=== PATIENT | male | born 1930 | race Caucasian/White ===

== ENCOUNTER 2019-08-05 20:24 | Emergency (ER) | payer MEDICARE ==
[~2019-08-05] VITALS: Ht 172.7 cm; Wt 93.0 kg
[2019-08-05] MEDS ORDERED: morphine INJ 10 MG/ML 1ML (SYR OR VIAL) IVP STA (20:50)
[2019-08-05] MEDS ORDERED: NS IV 1000 ML 1,000 ML IV STA (21:19)
--- NOTE | 2019-08-05 21:21 | Diagnostic Imaging Report ---
INDICATION: Walking up steps, tripped, right shoulder pain. FINDINGS: Two views of the right shoulder demonstrate a fracture through the inferior aspect of the glenoid with dislocation of the humerus. A humeral head fracture cannot be excluded on these films. IMPRESSION: There is a fracture of the glenoid with dislocation of the humerus. Dictated by: Dictated on workstation # [id number]
[2019-08-05] MEDS ORDERED: ETOMIDATE IV SOLN 20 MG/10 ML VIAL IV ONE (21:30)
--- NOTE | 2019-08-05 21:45 | ED Upper Extremity ---
General Chief Complaint: Upper Extremity Stated Complaint: ARM PAIN, FELL Nursing Triage Note: pt walking up steps and tripped placed right hand down to catch self and comes in per ems with co mid-upper shaft humerous pain. no other co, no loc, pt did receive 100 mcg of iv fentanyl per ems Nursing Sepsis Screen: No Definite Risk Source: patient Exam Limitations: no limitations History of Present Illness Date Seen by Provider: Aug 05, 2019 Time Seen by Provider: 20:48 Initial Comments Fall onto extended R arm w R shoulder injury. can't move his right arm. Arrives via EMS, given 100mcg Fentanyl and still having moderate pain. No other injuries. Onset: just prior to arrival Severity: moderate Method of Injury: fell Modifying Factors: Worse With Movement Allergies and Home Medications Allergies Coded Allergies: No Known Drug Allergies (Unverified , 08/05/19) Home Medications Oxycodone HCl/Acetaminophen 1 Each Tablet, 1 TAB PO Q4H PRN for PAIN-MODERATE Prescribed by: ADELSO BORJA on 08/05/19 2202 Patient Home Medication List Home Medication List Reviewed: Yes Review of Systems Constitutional: no symptoms reported; No malaise, No weakness Respiratory: No cough, No short of breath Cardiovascular: No chest pain, No palpitations, No syncope Musculoskeletal: see HPI; No back pain; joint pain (R shoulder), muscle pain; No muscle weakness, No neck pain Skin: No change in color, No rash Psychiatric/Neurological: Denies Numbness, Denies Paresthesia, Denies Pre- Existing Deficit, Denies Tremors, Denies Weakness Past Xfpnlpr-Apubbf-Emdygf Hx Past Med/Social Hx: Reviewed Nursing Past Med/Soc Hx Patient Social History Alcohol Use: Rarely Uses Alcohol Beverage of Choice: Beer Recreational Drug Use: No Smoking Status: Never a Smoker 2nd Hand Smoke Exposure: No Recent Foreign Travel: No Contact w/Someone Who Travel: No Recent Infectious Disease Expo: No Recent Hopitalizations: No Physical Abuse: No Sexual Abuse: No Mistreated: No Fear: No Seasonal Allergies Seasonal Allergies: No Past Medical History Orthopedic, Prostatectomy Respiratory: No Cardiac: Yes Hypertension Neurological: No Genitourinary: Yes Prostate Problems Gastrointestinal: No Musculoskeletal: Yes Chronic Back Pain Endocrine: No HEENT: No Cancer: Yes Prostate Psychosocial: No Integumentary: No Blood Disorders: No Physical Exam Vital Signs Vital Signs - First Documented 08/05/19 08/05/19 20:36 21:27 Temp 36.0 Pulse 72 Resp 18 B/P (MAP) 164/98 (120) Pulse Ox 98 O2 Delivery Room Air O2 Flow Rate 4.00 Capillary Refill : Less Than 3 Seconds Height, Weight, BMI Height: '" Weight: lbs. oz. kg; 31.00 BMI Method: General Appearance: WD/WN, no apparent distress HEENT: normal ENT inspection Neck: non-tender, full range of motion, supple Cardiovascular: regular rate, rhythm, no edema, no gallop Respiratory: chest non-tender, lungs clear, normal breath sounds Gastrointestinal: non tender, soft Back: normal inspection, no CVA tenderness, no vertebral tenderness Shoulder: No normal ROM; asymmetry (compared to left), bone tenderness (proximal Right humerus), deformity (R humerus), limited ROM, pain, soft tissue tenderness Elbow/Forearm: normal inspection, non-tender, no evidence of injury, normal ROM Wrist: Yes normal inspection, Yes non-tender, Yes no evidence of injury, Yes normal ROM Hand: normal inspection, non-tender, no evidence of injury, normal ROM, Right Neurologic/Tendon: normal sensation, normal motor functions Neurologic/Psychiatric: no motor/sensory deficits, alert, normal mood/affect, oriented x 3 Skin: normal color, warm/dry Procedures/Interventions Procedure: right arm dislocation Patient Education: Explained Benefits, Explained Risks, Pt. Ack. Understanding Agreement on procedure with pt: Yes Breath Sounds per Auscultation: Clear Heart Sounds per Auscultation: Regular Airway Exam: Mouth opens >2 fingers, Neck Full Range of Motion, Visulation of Uvula Splinting and Joint Reduction : Pre-Proc Neuro Vasc Exam: normal Post-Proc Neuro Vasc Exam: normal Joint Reduction Site: shoulder (R) Reduction Attempts: 1 Pre-Procedure NV Exam: Yes post joint reduction film: joint reduced Immobilizers: Large Shoulder Progress/Results/Core Measures Results/Orders My Orders Medications Given in ED Vital Signs/I&O Blood Pressure Mean: 120 Departure Impression Primary Impression: Anterior shoulder dislocation Qualified Codes: S43.014A - Anterior dislocation of right humerus, initial encounter Additional Impression: Glenoid fracture of shoulder Qualified Codes: S42.141A - Displaced fracture of glenoid cavity of scapula, right shoulder, initial encounter for closed fracture; S42.151A - Displaced fracture of neck of scapula, right shoulder, initial encounter for closed f racture Disposition: 01 HOME, SELF-CARE Condition: Improved Departure-Patient Inst. Decision time for Depature: 22:03 Referrals: SHAHRIAR PATIÑO MD (PCP) Primary Care Physician AALIYAH LAURENT MD anterior dislocation w fx of inferior glenoid Patient Instructions: Shoulder Dislocation (DC), Shoulder Fracture (DC) Add. Discharge Instructions: Call Dr Laurent (Orthopedic Surgeon ) to arrange for follow up care next week. All discharge instructions reviewed with patient and/or family. Voiced un derstanding. Scripts Oxycodone HCl/Acetaminophen (Percocet 5-325 mg Tablet) 1 Each Tablet 1 TAB PO Q4H PRN for PAIN-MODERATE MDD 6 for 7 Days, #20 TAB Prov: ADELSO BORJA DO 08/05/19 ADELSO BORJA DO Aug 05, 2019 21:45
--- NOTE | 2019-08-05 21:57 | Diagnostic Imaging Report ---
INDICATION: Post reduction right shoulder. FINDINGS: Reduction of the right shoulder demonstrates a bulging fracture off of the humeral head. The glenoid on this view appears normal. No dislocation is present. IMPRESSION: The right shoulder dislocation has been reduced. There is avulsion off of the humeral head. Dictated by: Dictated on workstation # [id number]
--- NOTE | 2019-08-05 21:57 | NUR ---
2129-etomidate given 2134-right sholder reduction obtained 2141-right shoulder immobilizer placed 2144-pt taken to xray for post reduction view-pt awake and talking with staff, a/o x4 states no pain with shoulder now
[2019-08-05] MEDS ORDERED: OXYC-199 PO (22:02)
[2019-08-05 22:43] VITALS: BP 144/73
--- OUTSIDE RECORDS SUMMARY | 2019-08-09 19:38 | XMS REPORT ---
Author Author David Casarez Organization [facility] Address [address] [address] [place] [address] Care Team Providers Care Repair Tech Name Role Phone Leodan Casarez Unavailable PROBLEMS Type Condition ICD9-CM Code VRP74-LQ Code Onset Dates Condition S tatus SNOMED Code Problem SK (seborrheic keratosis) L82.1 Acti ve 730823229 Problem Psoriasis L40.9 Active 5966056 Problem Personal history of other malignant neoplasm of skin V10.83 Active 179447370 Problem Benign neoplasm of skin of trunk, except scrotum 216.5 Active 347739916 Problem Personal history of other malignant neoplasm of skin Z85.828 Active 714128136 Problem Actinic keratosis L57.0 Active 20 1891999 ALLERGIES No Known Allergies ENCOUNTERS Encounter Location Date Diagnosis [facility] [address] [place] [address] [id number] Apr, 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 [facility] [address] [place] [id number] Mar, [facility] [address] [place] [address] [id number] Mar, Benign neoplasm of skin of t runk, except scrotum D23.5 ; Personal history of other malignant neoplasm of skin Z85.828 ; Encounter for screening for malignant neoplasm of skin Z12.83 ; Actinic keratosis L57.0 ; Neoplasm of uncertain behavior of skin D48.5 ; Seborrheic keratoses L82.1 and Lentigo L81.4 [facility] [address] [place] [address] [id number] September, Seborrheic keratoses L82.1 ; Personal history of other malignant neoplasm of skin Z85.828 ; Encounter for screening for malignant neoplasm of skin Z12.83 ; Actinic keratosis L57.0 ; Benign neoplasm of skin of trunk, except scrotum D23.5 ; Lentigo L81.4 and Milia L72.[address] [id number] Mar, SK (seborrheic keratosis) L8 2.1 and Actinic keratosis L57.[address] [id number] Mar, Benign neoplasm of skin of t runk, except scrotum D23.5 ; Personal history of other malignant neoplasm of skin Z85.828 ; Encounter for screening for malignant neoplasm of skin Z12.83 ; Actinic keratosis L57.0 ; Neoplasm of uncertain behavior of skin D48.5 ; Seborrheic keratoses L82.1 and Lentigo L81.[address] [id number] May, Actinic keratosis L57.0 ; Ps oriasis L40.9 ; Seborrhea L21.9 ; Personal history of other malignant neoplasm of skin Z85.828 ; Other seborrheic keratosis L82.1 and Other skin changes due to chronic exposure to nonionizing radiation L57.[address] [id number] Aug, Actinic keratosis L57.0 ; Pe rsonal history of other malignant neoplasm of skin Z85.828 ; Hemangioma of skin and subcutaneous tissue D18.01 ; Other benign neoplasm of skin of trunk D23.5 ; Other seborrheic keratosis L82.1 ; Other melanin hyperpigmentation L81.4 and Other psoriasis L40.[address] [id number] Mar, Actinic keratosis L57.0 ; Pe rsonal history of other malignant neoplasm of skin Z85.828 ; History of other malignant neoplasm of skin Z85.828 ; Hemangioma of skin and subcutaneous tissue D18.01 ; Other benign neoplasm of skin of trunk D23.5 ; Keratosis, seborrheic L82.1 ; Other seborrheic keratosis L82.1 ; Dyschromia L81.9 and Other melanin hyperpigmentation L81.[address] [id number] September, Actinic keratosis 702.[address] [id number] September, Personal history of other ma lignant neoplasm of skin V10.83 ; Actinic keratosis 702.0 ; Neoplasm of uncertain behavior of skin 238.2 ; 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 and Other seborrheic keratosis 702.[address] [id number] Jul, Personal history of other ma lignant neoplasm of skin V10.83 ; Actinic keratosis 702.0 ; 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 and Other seborrheic keratosis 702.[address] [id number] Mar, Personal history of other ma lignant neoplasm of skin V10.83 ; Actinic keratosis 702.0 ; Neoplasm of uncertain behavior of skin 238.2 ; 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 ; Other seborrheic keratosis 702.19 and Nevus, non- neoplastic 448.[address] [id number] September, 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 and Encounter for removal of sutures V58.[address] [id number] September, Carcinoma in situ of scalp a nd skin of neck 232.[address] [id number] Aug, Benign neoplasm of skin of t runk, except scrotum 216.5 ; Actinic keratosis 702.0 ; Neoplasm of uncertain behavior of skin 238.2 ; 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 PLAN OF CARE Activity Details Follow Up 10 d Reason: [place] [facility] [place] VITAL SIGNS Heart Rate 72 /min 2018-04-05 Height 5 ft 4 in in 2018-04-05 Weight 202 lbs 2018-04-05 BMI 34.67 kg/m2 2018-04-05 Blood pressure systolic 119 mm Hg 2018-04-05 Blood pressure diastolic 71 mm Hg 2018-04-05 MEDICATIONS Medication Instructions Dosage Frequency Start Date End Date Duration S tatus Timolol Maleate 0.25 % Ophthalmic Once a day 1 drop into affected eye 24 h Active Oxycodone-Aspirin 4.8355-325 MG Orally every 6 hrs 1 tablet as needed 6h Active Meloxicam 15 MG Orally Once a day 1 tablet 24h Active Omeprazole 20 MG Orally Once a day 1 capsule 24h Active Gabapentin 300 MG Orally Three times a day 1 capsule 8h Not-Taking Allopurinol 100 MG Orally Once a day 1 tablet 24h Active Warfarin Sodium Active Elocon 0.1 % Externally Once a day to face ,prn 1 application to affected area May, 7 days Active Triamcinolone Acetonide 0.1 % Externally Twice a day 1 appli cation to affected area 12h May, 7 days Active Triamterene-HCTZ 75-50 MG Orally Once a day 1 tablet in the morning 24h Active Efudex 5 % Externally Twice a day apply taa 12h Aug, 14 days Active Fluocinolone Acetonide 0.01 % Externally bid ataa 12h 20 October, 201 4 14 days Not-Taking RESULTS No Results PROCEDURES Procedure Date Ordered Result Body Site REPAIR NECK/HANDS/FEET/GENIT 2.6-7.5CM Apr 05, 2018 EXC MLGT SNHFG ALEJO 1.1 - 2 Apr 05, 2018 INSTRUCTIONS MEDICATIONS ADMINISTERED No Known Medications MEDICAL (GENERAL) HISTORY Type Description Date Medical History actinic keratosis Medical History SCCIS Surgical History back surgery august 2013 Surgical History back surgery 2013 Surgical History Left frontal scalp, SCCIS 2013 Hospitalization History back surgery august 2013 Hospitalization History back surgery 2013
--- OUTSIDE RECORDS SUMMARY | 2019-08-09 19:38 | XMS REPORT ---
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 880410386 Problem Anticoagulant long-term use Z79.01 Ac tive 914311605 ALLERGIES No Information ENCOUNTERS Encounter Location Date Diagnosis [place] [address] [place] [address] Dec Anticoagulant long-term use Z79.[address] [address] [address] [address] Nov Anticoagulant long-term use Z79.01 [place] [address] [place] [address] [address] [address] Oct Anticoagulant long-term use Z79.[address] [address] [address] September Prostate cancer C61 ; Essential hypertension I10 ; Hypercholesterolemia E78.00 and Anticoagulant long-term use Z79.01 [place] [address] [place] [address] September Lumbar back pain M54.5 and Coccydynia M53.3 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 [place] [address] [place] [address] Jun Osteoarthritis of spine with radiculopathy, lumbar region M47.26 ; Prostate cancer C61 ; 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, 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 and 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 IMMUNIZATIONS No Known Immunizations SOCIAL HISTORY Never Assessed REASON FOR VISIT INR PLAN OF CARE VITAL SIGNS MEDICATIONS Unknown Medications RESULTS Name Result Date Reference Range INR (IN HOUSE) 2018-08-20 INR 1.7 1.10 - 3.30 PREVIOUS INR 1.9 CURRENT COUMADIN DOSE 5mg QD NEW COUMADIN DOSE Take 7mg on /Thu and 5mg OD, recheck 1 yamila stanton Lot # [id number] Exp date 08/30/2019 PROCEDURES Procedure Date Ordered Result Body Site PROTHROMBIN TIME August 20, 2018 INSTRUCTIONS MEDICATIONS ADMINISTERED No Known Medications MEDICAL (GENERAL) HISTORY Type Description Date Medical History history of blood clots L Leg Medical History djd lumbar spine Medical History hypertension Medical History gout Medical History prostate cancer Surgical History back surgery x 4 Surgical History prostrate surgery Hospitalization History see surgical hx
--- OUTSIDE RECORDS SUMMARY | 2019-08-09 19:38 | XMS REPORT ---
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 972683016 Problem Anticoagulant long-term use Z79.01 Ac tive 033371866 ALLERGIES No Information ENCOUNTERS Encounter Location Date Diagnosis [place] [address] [place] [address] Nov Anticoagulant long-term use Z79.[address] [address] [address] [address] Oct Anticoagulant long-term use Z79.01 [place] [address] [place] [address] [address] September Prostate cancer C61 ; Essential hypertension I10 ; Hypercholesterolemia E78.00 and Anticoagulant long-term use Z79.01 [place] [address] [place] [address] September Lumbar back pain M54.5 and Coccydynia M53.3 [facility] [address] [place] [address] September, Lumbar back pain M54.5 [facility] [address] [place] [address] Aug Anticoagulant long-term use Z79.01 [facility] [address] [place] [address] Jul Anticoagulant long-term use Z79.01 [facility] [address] [place] [address] Jul Anticoagulant long-term use Z79.01 [facility] [address] [place] [address] 08 Jul 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 [place] [address] [place] [address] Jun Osteoarthritis of spine with radiculopathy, lumbar [...] Result Date Reference Range INR (IN HOUSE) 2018-08-06 INR 1.9 1.10 - 3.30 PREVIOUS INR CURRENT COUMADIN DOSE 5mg every day NEW COUMADIN DOSE take extra 2mg tomorrow morn ing and then continue 5mg everyday, recheck 2 weeks Lot # [id number] Exp date 08/30/2019 PROCEDURES Procedure Date Ordered Result Body Site PROTHROMBIN TIME August 06, 2018 INSTRUCTIONS MEDICATIONS ADMINISTERED No Known Medications MEDICAL (GENERAL) HISTORY Type Description Date Medical History history of blood clots L Leg Medical History djd lumbar spine Medical History hypertension Medical History gout Medical History prostate cancer Surgical History back surgery x 4 Surgical History prostrate surgery Hospitalization History see surgical hx
--- OUTSIDE RECORDS SUMMARY | 2019-08-09 19:38 | XMS REPORT ---
Author Author David Casarez Organization [facility] Address [address] [address] [place] [address] Care Team Providers Care Laminating Machine Feeder Name Role Phone Leodan Casarez Unavailable PROBLEMS Type Condition ICD9-CM Code RNE63-[id number] Code Onset Dates Condition S tatus SNOMED Code Problem SK (seborrheic keratosis) L82.1 Acti ve [id number] Problem Psoriasis L40.9 Active 8756084 Problem Personal history of other malignant neoplasm of skin V10.83 Active 396219172 Problem Benign neoplasm of skin of trunk, except scrotum 216.5 Active 479496879 Problem Personal history of other malignant neoplasm of skin Z85.828 Active 822088071 Problem Actinic keratosis L57.0 Active 20 3706806 ALLERGIES No Information ENCOUNTERS Encounter Location Date Diagnosis [facility] [address] [place], [place] [id number] Mar, [facility] [address] [place] [address] [id number] Mar, Benign neoplasm of skin of t runk, except scrotum D23.5 ; Personal history of other malignant neoplasm of skin Z85.828 ; Encounter for screening for malignant neoplasm of skin Z12.83 ; Actinic keratosis L57.0 ; Neoplasm of uncertain behavior of skin D48.5 ; Seborrheic keratoses L82.1 and Lentigo L81.4 [facility] [address] [place] [address] [id number] September, Seborrheic keratoses L82.1 ; Personal history of other malignant neoplasm of skin Z85.828 ; Encounter for screening for malignant neoplasm of skin Z12.83 ; Actinic keratosis L57.0 ; Benign neoplasm of skin of trunk, except scrotum D23.5 ; Lentigo L81.4 and Milia L72.0 [facility] [id number] [place] [address] Avenue in [address] [id number] Mar, SK (seborrheic keratosis) L8 2.1 and Actinic keratosis L57.0 [facility] [address] [place] [address] Avenue in [address] [id number] Mar, Benign neoplasm of skin of t runk, except scrotum D23.5 ; Personal history of other malignant neoplasm of skin Z85.828 ; Encounter for screening for malignant neoplasm of skin Z12.83 ; Actinic keratosis L57.0 ; Neoplasm of uncertain behavior of skin D48.5 ; Seborrheic keratoses L82.1 and Lentigo L81.[address] [id number] May, Actinic keratosis L57.0 ; Ps oriasis L40.9 ; Seborrhea L21.9 ; Personal history of other malignant neoplasm of skin Z85.828 ; Other seborrheic keratosis L82.1 and Other skin changes due to chronic exposure to nonionizing radiation L57.[address] [id number] Aug, Actinic keratosis L57.0 ; Pe rsonal history of other malignant neoplasm of skin Z85.828 ; Hemangioma of skin and subcutaneous tissue D18.01 ; Other benign neoplasm of skin of trunk D23.5 ; Other seborrheic keratosis L82.1 ; Other melanin hyperpigmentation L81.4 and Other psoriasis L40.8 [facility] [address] [place] [address] [id number] Mar, Actinic keratosis L57.0 ; Pe rsonal history of other malignant neoplasm of skin Z85.828 ; History of other malignant neoplasm of skin Z85.828 ; Hemangioma of skin and subcutaneous tissue D18.01 ; Other benign neoplasm of skin of trunk D23.5 ; Keratosis, seborrheic L82.1 ; Other seborrheic keratosis L82.1 ; Dyschromia L81.9 and Other melanin hyperpigmentation L81.[address] [id number] September, Actinic keratosis 702.[address] [id number] September, Personal history of other ma lignant neoplasm of skin V10.83 ; Actinic keratosis 702.0 ; Neoplasm of uncertain behavior of skin 238.2 ; 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 and Other seborrheic keratosis 702.[address] [id number] Jul, Personal history of other ma lignant neoplasm of skin V10.83 ; Actinic keratosis 702.0 ; 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 and Other seborrheic keratosis 702.[address] [id number] Mar, Personal history of other ma lignant neoplasm of skin V10.83 ; Actinic keratosis 702.0 ; Neoplasm of uncertain behavior of skin 238.2 ; 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 ; Other seborrheic keratosis 702.19 and Nevus, non- neoplastic 448.[address] [id number] September, 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 and Encounter for removal of sutures V58.[address] [id number] September, Carcinoma in situ of scalp a nd skin of neck 232.[address] [id number] Aug, Benign neoplasm of skin of t runk, except scrotum 216.5 ; Actinic keratosis 702.0 ; Neoplasm of uncertain behavior of skin 238.2 ; 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 ; Other seborrheic keratosis 702.19 and Hemangioma of skin and subcutaneous tissue 228.01 IMMUNIZATIONS No Known Immunizations SOCIAL HISTORY Never Assessed REASON FOR VISIT mips done PLAN OF CARE VITAL SIGNS MEDICATIONS Unknown Medications RESULTS No Results PROCEDURES No Known procedures INSTRUCTIONS MEDICATIONS ADMINISTERED No Known Medications MEDICAL (GENERAL) HISTORY Type Description Date Medical History actinic keratosis Medical History [facility] Surgical History back surgery august 2013 Surgical History back surgery 2013 Surgical History Left frontal scalp, [facility] 2013 Hospitalization History back surgery august 2013 Hospitalization History back surgery 2013
--- OUTSIDE RECORDS SUMMARY | 2019-08-09 19:38 | XMS REPORT ---
Author Author David Casarez Organization [facility] Address [address] [address] [place] [address] Care Team Providers Care Tile And Marble Installer Name Role Phone Leodan Casarez Unavailable PROBLEMS Type Condition ICD9-CM Code [id number] Code Onset Dates Condition S tatus SNOMED Code Problem Personal history of other malignant neoplasm of skin Z85.828 Active 614729554 Problem SK (seborrheic keratosis) L82.1 Acti ve 988069313 Problem Benign neoplasm of skin of trunk, except scrotum 216.5 Active 056554946 Problem Personal history of other malignant neoplasm of skin V10.83 Active 193339029 Problem Actinic keratosis L57.0 Active 20 8064467 Problem Psoriasis L40.9 Active 8963541 ALLERGIES No Known Allergies ENCOUNTERS Encounter Location Date Diagnosis [facility] [address] [facility] in [address] [id number] Nov, Personal history of other ma lignant neoplasm of skin Z85.828 ; Seborrheic keratoses L82.1 ; Encounter for screening for malignant neoplasm of skin Z12.83 ; Actinic keratosis L57.0 and Lentigo L81.4 [facility] [address] [facility] in [address] [id number] Apr, [facility] [address] [address] [facility] [address] in [address] [id number] Apr, [facility] [address] [facility] in [address] [id number] Apr, 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 [facility] [address] [place], [place] [id number] Mar, [facility] [address] [facility] in [address] [id number] Mar, Benign neoplasm of skin of t runk, except scrotum D23.5 ; Personal history of other malignant neoplasm of skin Z85.828 ; Encounter for screening for malignant neoplasm of skin Z12.83 ; Actinic keratosis L57.0 ; Neoplasm of uncertain behavior of skin D48.5 ; Seborrheic keratoses L82.1 and Lentigo L81.[address] [id number] September, Seborrheic keratoses L82.1 ; Personal history of other malignant neoplasm of skin Z85.828 ; Encounter for screening for malignant neoplasm of skin Z12.83 ; Actinic keratosis L57.0 ; Benign neoplasm of skin of trunk, except scrotum D23.5 ; Lentigo L81.4 and Milia L72.[address] [id number] Mar, SK (seborrheic keratosis) L8 2.1 and Actinic keratosis L57.[address] [id number] Mar, Benign neoplasm of skin of t runk, except scrotum D23.5 ; Personal history of other malignant neoplasm of skin Z85.828 ; Encounter for screening for malignant neoplasm of skin Z12.83 ; Actinic keratosis L57.0 ; Neoplasm of uncertain behavior of skin D48.5 ; Seborrheic keratoses L82.1 and Lentigo L81.[address] [id number] May, Actinic keratosis L57.0 ; Ps oriasis L40.9 ; Seborrhea L21.9 ; Personal history of other malignant neoplasm of skin Z85.828 ; Other seborrheic keratosis L82.1 and Other skin changes due to chronic exposure to nonionizing radiation L57.[address] [id number] Aug, Actinic keratosis L57.0 ; Pe rsonal history of other malignant neoplasm of skin Z85.828 ; Hemangioma of skin and subcutaneous tissue D18.01 ; Other benign neoplasm of skin of trunk D23.5 ; Other seborrheic keratosis L82.1 ; Other melanin hyperpigmentation L81.4 and Other psoriasis L40.[address] [id number] Mar, Actinic keratosis L57.0 ; Pe rsonal history of other malignant neoplasm of skin Z85.828 ; History of other malignant neoplasm of skin Z85.828 ; Hemangioma of skin and subcutaneous tissue D18.01 ; Keratosis, seborrheic L82.1 ; Other benign neoplasm of skin of trunk D23.5 ; Dyschromia L81.9 ; Other seborrheic keratosis L82.1 and Other melanin hyperpigmentation L81.[address] [id number] September, Actinic keratosis 702.[address] [id number] September, Personal history of other ma lignant neoplasm of skin V10.83 ; Actinic keratosis 702.0 ; Neoplasm of uncertain behavior of skin 238.2 ; 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 and Other seborrheic keratosis 702.[address] [id number] Jul, Personal history of other ma lignant neoplasm of skin V10.83 ; Actinic keratosis 702.0 ; 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 and Other seborrheic keratosis 702.[address] [id number] Mar, Personal history of other ma lignant neoplasm of skin V10.83 ; Actinic keratosis 702.0 ; Neoplasm of uncertain behavior of skin 238.2 ; 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 ; Other seborrheic keratosis 702.19 and Nevus, non- neoplastic 448.[address] [id number] September, 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 and Encounter for removal of sutures V58.[address] [id number] September, Carcinoma in situ of scalp a nd skin of neck 232.[address] [id number] Aug, Benign neoplasm of skin of t runk, except scrotum 216.5 ; Actinic keratosis 702.0 ; Neoplasm of uncertain behavior of skin 238.2 ; 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 ; Other seborrheic keratosis 702.19 and Hemangioma of skin and subcutaneous tissue 228.01 IMMUNIZATIONS No Known Immunizations SOCIAL HISTORY Never Assessed REASON FOR VISIT 6 mo f/u PLAN OF CARE Activity Details Follow Up 6 Months Reason: VITAL SIGNS Heart Rate 80 /min 2018-12-06 Height 5 ft 4 in in 2018-12-06 Weight 190 lbs 2018-12-06 BMI 32.61 kg/m2 2018-12-06 Blood pressure systolic 114 mm Hg 2018-12-06 Blood pressure diastolic 61 mm Hg 2018-12-06 MEDICATIONS Medication Instructions Dosage Frequency Start Date End Date Duration S tatus Oxycodone-Aspirin 4.8355-325 MG Orally every 6 hrs 1 tablet as needed 6h Active Omeprazole 20 MG Orally Once a day 1 capsule 24h Active Fluocinolone Acetonide 0.01 % Externally bid ataa 12h September, 201 4 14 days Not-Taking Warfarin Sodium Active Elocon 0.1 % Externally Once a day to face ,prn 1 application to affected area May, 7 days Active Meloxicam 15 MG Orally Once a day 1 tablet 24h Active Timolol Maleate 0.25 % Ophthalmic Once a day 1 drop into affected eye 24 h Active Efudex 5 % Externally Twice a day apply taa 12h 13 Aug, 2015 14 days Active Triamcinolone Acetonide 0.1 % Externally Twice a day 1 appli cation to affected area 12h May, 7 days Active Gabapentin 300 MG Orally Three times a day 1 capsule 8h Not-Taking Triamterene-HCTZ 75-50 MG Orally Once a day 1 tablet in the morning 24h Active Allopurinol 100 MG Orally Once a day 1 tablet 24h Active RESULTS No Results PROCEDURES Procedure Date Ordered Result Body Site DESTROY LESIONS 2 - 14 EACH December 06, 2018 DESTROY BENIGN/PREMAL LESION December 06, 2018 INSTRUCTIONS MEDICATIONS ADMINISTERED No Known Medications MEDICAL (GENERAL) HISTORY Type Description Date Medical History actinic keratosis Medical History [facility] Surgical History back surgery august 2013 Surgical History back surgery 2013 Surgical History Left frontal scalp, SCCIS 2013 Hospitalization History back surgery august 2013 Hospitalization History back surgery 2013
--- OUTSIDE RECORDS SUMMARY | 2019-08-09 19:38 | XMS REPORT ---
Author Author David Casarez Organization [facility] Address [address] [address] [address] [place] [address] Care Team Providers Care Tail End Rider Name Role Phone Hermelindo Leodan Unavailable PROBLEMS Type Condition ICD9-CM Code QRD79-PZ Code Onset Dates Condition S tatus SNOMED Code Problem SK (seborrheic keratosis) L82.1 Acti ve 764645863 Problem Psoriasis L40.9 Active 3702152 Problem Personal history of other malignant neoplasm of skin V10.83 Active 253833583 Problem Benign neoplasm of skin of trunk, except scrotum 216.5 Active 290541133 Problem Personal history of other malignant neoplasm of skin Z85.828 Active 874461403 Problem Actinic keratosis L57.0 Active 20 8666252 ALLERGIES No Information ENCOUNTERS Encounter Location Date Diagnosis [facility] [address] [facility] in [address] [id number] Apr, [facility] [address] [facility] in [address] [id number] Apr, [facility] [address] [place] [address] [id number] Apr, 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 [facility] [address] [place], [place] [id number] Mar, [facility] [address] [facility] in [address] [id number] Mar, Benign neoplasm of skin of t runk, except scrotum D23.5 ; Personal history of other malignant neoplasm of skin Z85.828 ; Encounter for screening for malignant neoplasm of skin Z12.83 ; Actinic keratosis L57.0 ; Neoplasm of uncertain behavior of skin D48.5 ; Seborrheic keratoses L82.1 and Lentigo L81.[address] [id number] September, Seborrheic keratoses L82.1 ; Personal history of other malignant neoplasm of skin Z85.828 ; Encounter for screening for malignant neoplasm of skin Z12.83 ; Actinic keratosis L57.0 ; Benign neoplasm of skin of trunk, except scrotum D23.5 ; Lentigo L81.4 and Milia L72.[address] [id number] Mar, SK (seborrheic keratosis) L8 2.1 and Actinic keratosis L57.[address] [id number] Mar, Benign neoplasm of skin of t runk, except scrotum D23.5 ; Personal history of other malignant neoplasm of skin Z85.828 ; Encounter for screening for malignant neoplasm of skin Z12.83 ; Actinic keratosis L57.0 ; Neoplasm of uncertain behavior of skin D48.5 ; Seborrheic keratoses L82.1 and Lentigo L81.[address] [id number] May, Actinic keratosis L57.0 ; Ps oriasis L40.9 ; Seborrhea L21.9 ; Personal history of other malignant neoplasm of skin Z85.828 ; Other seborrheic keratosis L82.1 and Other skin changes due to chronic exposure to nonionizing radiation L57.[address] [id number] Aug, Actinic keratosis L57.0 ; Pe rsonal history of other malignant neoplasm of skin Z85.828 ; Hemangioma of skin and subcutaneous tissue D18.01 ; Other benign neoplasm of skin of trunk D23.5 ; Other seborrheic keratosis L82.1 ; Other melanin hyperpigmentation L81.4 and Other psoriasis L40.[address] [id number] Mar, Actinic keratosis L57.0 ; Pe rsonal history of other malignant neoplasm of skin Z85.828 ; History of other malignant neoplasm of skin Z85.828 ; Hemangioma of skin and subcutaneous tissue D18.01 ; Other benign neoplasm of skin of trunk D23.5 ; Keratosis, seborrheic L82.1 ; Other seborrheic keratosis L82.1 ; Dyschromia L81.9 and Other melanin hyperpigmentation L81.[address] [id number] September, Actinic keratosis 702.[address] [id number] September, Personal history of other ma lignant neoplasm of skin V10.83 ; Actinic keratosis 702.0 ; Neoplasm of uncertain behavior of skin 238.2 ; 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 and Other seborrheic keratosis 702.[address] [id number] Jul, Personal history of other ma lignant neoplasm of skin V10.83 ; Actinic keratosis 702.0 ; 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 and Other seborrheic keratosis 702.[address] [id number] Mar, Personal history of other ma lignant neoplasm of skin V10.83 ; Actinic keratosis 702.0 ; Neoplasm of uncertain behavior of skin 238.2 ; 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
--- OUTSIDE RECORDS SUMMARY | 2019-08-09 19:38 | XMS REPORT ---
Author Author David Casarez Organization [facility] Address [address] [place] [address] Care Team Providers Care Napping Machine Operator Name Role Phone Leodan Casarez Unavailable PROBLEMS Type Condition ICD9-CM Code [id number] Code Onset Dates Condition S tatus SNOMED Code Problem SK (seborrheic keratosis) L82.1 Acti ve 094934896 Problem Psoriasis L40.9 Active 3397104 Problem Personal history of other malignant neoplasm of skin V10.83 Active 723300749 Problem Benign neoplasm of skin of trunk, except scrotum 216.5 Active 922431894 Problem Personal history of other malignant neoplasm of skin Z85.828 Active 236808179 Problem Actinic keratosis L57.0 Active 20 [id number] ALLERGIES No Known Allergies ENCOUNTERS Encounter Location Date Diagnosis [facility] [address] [place] [address] [id number] Mar, Benign neoplasm of skin of t runk, except scrotum D23.5 ; Personal history of other malignant neoplasm of skin Z85.828 ; Encounter for screening for malignant neoplasm of skin Z12.83 ; Actinic keratosis L57.0 ; Neoplasm of uncertain behavior of skin D48.5 ; Seborrheic keratoses L82.1 and Lentigo L81.4 [facility] [address] [place] [address] [id number] September, Seborrheic keratoses L82.1 ; Personal history of other malignant neoplasm of skin Z85.828 ; Encounter for screening for malignant neoplasm of skin Z12.83 ; Actinic keratosis L57.0 ; Benign neoplasm of skin of trunk, except scrotum D23.5 ; Lentigo L81.4 and Milia L72.0 [facility] [address] [place] [address] [id number] Mar, SK (seborrheic keratosis) L8 2.1 and Actinic keratosis L57.[address] [id number] Mar, Benign neoplasm of skin of t runk, except scrotum D23.5 ; Personal history of other malignant neoplasm of skin Z85.828 ; Encounter for screening for malignant neoplasm of skin Z12.83 ; Actinic keratosis L57.0 ; Neoplasm of uncertain behavior of skin D48.5 ; Seborrheic keratoses L82.1 and Lentigo L81.[address] [id number] May, Actinic keratosis L57.0 ; Ps oriasis L40.9 ; Seborrhea L21.9 ; Personal history of other malignant neoplasm of skin Z85.828 ; Other seborrheic keratosis L82.1 and Other skin changes due to chronic exposure to nonionizing radiation L57.[address] [id number] Aug, Actinic keratosis L57.0 ; Pe rsonal history of other malignant neoplasm of skin Z85.828 ; Hemangioma of skin and subcutaneous tissue D18.01 ; Other benign neoplasm of skin of trunk D23.5 ; Other seborrheic keratosis L82.1 ; Other melanin hyperpigmentation L81.4 and Other psoriasis L40.[address] [id number] Mar, Actinic keratosis L57.0 ; Pe rsonal history of other malignant neoplasm of skin Z85.828 ; History of other malignant neoplasm of skin Z85.828 ; Hemangioma of skin and subcutaneous tissue D18.01 ; Keratosis, seborrheic L82.1 ; Other benign neoplasm of skin of trunk D23.5 ; Dyschromia L81.9 ; Other seborrheic keratosis L82.1 and Other melanin hyperpigmentation L81.[address] [id number] September, Actinic keratosis 702.[address] [id number] September, Personal history of other ma lignant neoplasm of skin V10.83 ; Actinic keratosis 702.0 ; Neoplasm of uncertain behavior of skin 238.2 ; 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 and Other seborrheic keratosis 702.[address] [id number] Jul, Personal history of other ma lignant neoplasm of skin V10.83 ; Actinic keratosis 702.0 ; 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 and Other seborrheic keratosis 702.[address] [id number] Mar, Personal history of other ma lignant neoplasm of skin V10.83 ; Actinic keratosis 702.0 ; Neoplasm of uncertain behavior of skin 238.2 ; 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 ; Other seborrheic keratosis 702.19 and Nevus, non- neoplastic 448.[address] [id number] September, 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 and Encounter for removal of sutures V58.[address] [id number] September, Carcinoma in situ of scalp a nd skin of neck 232.[address] [id number] Aug, Benign neoplasm of skin of t runk, except scrotum 216.5 ; Actinic keratosis 702.0 ; Neoplasm of uncertain behavior of skin 238.2 ; 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 ; Other seborrheic keratosis 702.19 and Hemangioma of skin and subcutaneous tissue 228.01 IMMUNIZATIONS No Known Immunizations SOCIAL HISTORY Never Assessed REASON FOR VISIT AK's PLAN OF CARE Activity Details Follow Up 6 Months Reason: Pending Test Surgical to [facility] Pathology VITAL SIGNS Heart Rate 77 /min 2018-03-11 Height 5 ft 4 in in 2018-03-11 Weight 202 lbs 2018-03-11 BMI 34.67 kg/m2 2018-03-11 Blood pressure systolic 116 mm Hg 2018-03-11 Blood pressure diastolic 65 mm Hg 2018-03-11 MEDICATIONS Medication Instructions Dosage Frequency Start Date End Date Duration S tatus Gabapentin 300 MG Orally Three times a day 1 capsule 8h Not-Taking Oxycodone-Aspirin 4.8355-325 MG Orally every 6 hrs 1 tablet as needed 6h Active Timolol Maleate 0.25 % Ophthalmic Once a day 1 drop into affected eye 24 h Active Triamterene-HCTZ 75-50 MG Orally Once a day 1 tablet in the morning 24h Active Allopurinol 100 MG Orally Once a day 1 tablet 24h Active Omeprazole 20 MG Orally Once a day 1 capsule 24h Active Warfarin Sodium Active Efudex 5 % Externally Twice a day apply taa 12h 13 Aug, 2015 14 days Active Triamcinolone Acetonide 0.1 % Externally Twice a day 1 appli cation to affected area 12h May, 7 days Active Meloxicam 15 MG Orally Once a day 1 tablet 24h Active Elocon 0.1 % Externally Once a day to face ,prn 1 application to affected area May, 7 days Active Fluocinolone Acetonide 0.01 % Externally bid ataa 12h 22 September, 201 4 14 days Not-Taking RESULTS No Results PROCEDURES Procedure Date Ordered Result Body Site BIOPSY OF SKIN LESION Mar 11, 2018 DESTROY BENIGN/PREMAL LESION Mar 11, 2018 DESTROY LESIONS 2 - 14 EACH Mar 11, 2018 INSTRUCTIONS MEDICATIONS ADMINISTERED No Known Medications MEDICAL (GENERAL) HISTORY Type Description Date Medical History actinic keratosis Medical History [facility] Surgical History back surgery august 2013 Surgical History back surgery 2013 Surgical History Left frontal scalp, SCCIS 2013 Hospitalization History back surgery august 2013 Hospitalization History back surgery 2013
--- OUTSIDE RECORDS SUMMARY | 2019-08-09 19:39 | XMS REPORT ---
Author Author David Green Organization [facility] Address [address] [place] [address] Care Team Providers Care Yeast Maker Name Role Phone Abebe Green Unavailable PROBLEMS Type Condition ICD9-CM Code LGL08-DM Code Onset Dates Condition S tatus SNOMED Code Assessment Other skin changes due to chronic exposu re to nonionizing radiation L57.8 May, Active 632376900 Assessment Seborrhea L21.9 May, Active 023857 08 Assessment Other seborrheic keratosis L82.1 May, Active 884292337 Problem Psoriasis L40.9 Active 9064250 Problem Personal history of other malignant neoplasm of skin Z85.828 Active 298984369 Problem Benign neoplasm of skin of trunk, except scrotum 216.5 Active 936022273 Assessment Actinic keratosis L57.0 May, Active 894152891 Problem Actinic keratosis L57.0 Active 20 2924653 Problem Personal history of other malignant neoplasm of skin V10.83 Active 136763861 ALLERGIES Substance Reaction Event Type Date Status N.K.D.A. Unknown Non Drug Allergy May, Unknown SOCIAL HISTORY No smoking Hx information available PLAN OF CARE VITAL SIGNS Heart Rate 70 /min 2016-05-28 Height 5 ft 4 in in 2016-05-28 Weight 220 lbs 2016-05-28 BMI 37.76 kg/m2 2016-05-28 Blood pressure systolic 129 mm Hg 2016-05-28 Blood pressure diastolic 77 mm Hg 2016-05-28 MEDICATIONS Medication Instructions Dosage Frequency Start Date End Date Duration S tatus Oxycodone-Aspirin 4.8355-325 MG Orally every 6 hrs 1 tablet as needed 6h Active Triamterene-HCTZ 75-50 MG Orally Once a day 1 tablet in the morning 24h Active Gabapentin 300 MG Orally Three times a day 1 capsule 8h Active Warfarin Sodium Active Allopurinol 100 MG Orally Once a day 1 tablet 24h Active Timolol Maleate 0.25 % Ophthalmic Once a day 1 drop into affected eye 24 h Active Meloxicam 15 MG Orally Once a day 1 tablet 24h Active Triamcinolone Acetonide 0.1 % Externally Twice a day 1 appli cation to affected area 12h 28 May, 2016 7 days Active Omeprazole 20 MG Orally Once a day 1 capsule 24h Active Efudex 5 % Externally Twice a day apply taa 12h 13 Aug, 2015 14 days Active Elocon 0.1 % Externally Once a day to face ,prn 1 application to affected area May, 7 days Active RESULTS No Results PROCEDURES Procedure Date Ordered Related Diagnosis Body Site DESTROY BENIGN/PREMAL LESION May 28, 2016 Office Visit, Est Pt., Level 3 May 28, 2016 IMMUNIZATIONS No Known Immunizations
--- OUTSIDE RECORDS SUMMARY | 2019-08-09 19:39 | XMS REPORT | Continuity of Care Document ---
Author Organization Unknown Address Unknown Phone Unavailable Allergies Active Description Code Type Severity Reaction Onset Reported/Identified Relationship to Patient Clinical Status Yes No Known Drug Allergies [id number] Drug Allergy Unknown N/A 08/05/2019 Medications There is no data. Problems There is no data. Procedures There is no data. Results Test Result Range CMP - 06/29/19 07:51 GLUCOSE 94 mg/dL 65-99 UREA NITROGEN (BUN) 17 mg/dL 7-25 CREATININE 1.09 mg/dL 0.70-1.11 eGFR NON-AFR. IRANIAN 61 mL/min/1.73m2 > OR = 60 eGFR 70 mL/min/1.73m2 > OR = 60 BUN/CREATININE RATIO NOT APPLICABLE (calc) 6-22 SODIUM 133 mmol/L 135-146 POTASSIUM 4.1 mmol/L 3.5-5.3 CHLORIDE 96 mmol/L 98-110 CARBON DIOXIDE 29 mmol/L 20-32 CALCIUM 10.5 mg/dL 8.6-10.3 PROTEIN, TOTAL 7.1 g/dL 6.1-8.1 ALBUMIN 4.4 g/dL 3.6-5.1 GLOBULIN 2.7 g/dL (calc) 1.9-3.7 ALBUMIN/GLOBULIN RATIO 1.6 (calc) 1.0-2. 5 BILIRUBIN, TOTAL 0.6 mg/dL 0.2-1.2 ALKALINE PHOSPHATASE 54 U/L 40-115 AST 16 U/L 10-35 ALT 11 U/L 9-46 URIC ACID, SERUM - 06/29/19 07:51 URIC ACID 4.3 mg/dL 4.0-8.0 CBC w/MANUAL DIFF - 06/29/19 07:51 WHITE BLOOD CELL COUNT 9.1 Thousand/uL 3 .8-10.8 RED BLOOD CELL COUNT 4.14 Million/uL 4.2 0-5.80 HEMOGLOBIN 14.4 g/dL 13.2-17.1 HEMATOCRIT 40.6 % 38.5-50.0 MCV 98.1 fL 80.0-100.0 MCH 34.8 pg 27.0-33.0 MCHC 35.5 g/dL 32.0-36.0 RDW 12.4 % 11.0-15.0 PLATELET COUNT 188 Thousand/uL 140-400 MPV 11.0 fL 7.5-12.5 ABSOLUTE NEUTROPHILS 5314 cells/uL 1500- 7800 ABSOLUTE MONOCYTES 719 cells/uL 200-950 ABSOLUTE EOSINOPHILS 182 cells/uL 15-500 ABSOLUTE BASOPHILS 0 cells/uL 0-200 NEUTROPHILS 58.4 % NRG LYMPHOCYTES 31.7 % NRG MONOCYTES 7.9 % NRG EOSINOPHILS 2.0 % NRG BASOPHILS 0 % NRG ABSOLUTE LYMPHOCYTES 2885 cells/uL 850-3 900 COMMENT(S) NRG Encounters ACCT No. Visit Date/Time Discharge Status Pt. Type Provider Facility Loc./Unit Complaint [id number] 05/09/2019 13:40:00 05/09/2019 23:59: 59 [facility] [id number] 06/29/2019 08:00:00 Document Registration [id number] 08/05/2019 20:27:00 020 22:43:00 DIS Emergency ADELSO BORJA DO [facility] ER FS ARM PAIN, FELL
== END 2019-08-05 22:43 | disposition home or self-care (01) ==
LOC: ER FS 20:27
DX: S42.141A Displaced fracture of glenoid cavity of scapula, right shoulder, initial encounter for closed fracture (principal); S43.014A Anterior dislocation of right humerus, initial encounter; Z85.46 Personal history of malignant neoplasm of prostate; W10.9XXA Fall (on) (from) unspecified stairs and steps, initial encounter
CPT/HCPCS: 23650; 73030; 73060; 93041